=== PATIENT | male | born 1970 | race Caucasian/White ===

== ENCOUNTER → 2021-07-08 | Outpatient (CLI) | payer BC ==
[2021-07-08 10:53] LABS: HEMOGLOBIN 15.3 gm/dl (14.0-17.5); RED BLOOD COUNT 4.8 M/UL (4.20-5.50); WHITE BLOOD COUNT 6.7 K/UL (4.5-11.0)
[2021-07-08 11:48] LABS: BUN/CREATININE RATIO 14 (0-10)
[2021-07-09 08:14] LABS: TESTOSTERONE, SERUM 369 ng/dL (264-916); THYROXINE (T4) 6.2 ug/dL (4.5-12.0); TRIIODOTHYRONINE (T3) 104 ng/dL (71-180); VITAMIN D, 25-HYDROXY 21.8 ng/mL (30.0-100.0)
== END ==
LOC: LAB 08:57
PROVIDERS: Nurse Practitioner
DX: Z12.5 Encounter for screening for malignant neoplasm of prostate (principal); G47.30 Sleep apnea, unspecified; R53.82 Chronic fatigue, unspecified; Z85.72 Personal history of non-Hodgkin lymphomas
CPT/HCPCS: 36415; 71046; 80053; 80061; 81001; 84153; 84403; 84436; 84443; 84480; 85025

== ENCOUNTER → 2021-11-05 | Outpatient (CLI) | payer BC | LOC: NM 07:06 → EDSTATUS 07:30 → NM 11-07 08:30 | DX: C61 Malignant neoplasm of prostate (principal) | CPT/HCPCS: 78306; A9503 ==

== ENCOUNTER → 2021-11-12 | Outpatient (CLI) | payer BC | LOC: CT 13:20 | DX: C61 Malignant neoplasm of prostate (principal) | CPT/HCPCS: Q9967 ==